=== PATIENT | male | born 1955 | race Caucasian/White ===

== ENCOUNTER → 2017-10-31 12:18 | Outpatient (CLI) | payer OTHER, SELFPAY ==
--- NOTE | 2017-10-31 12:20 | DI.RAD.S_ITS ---
PROCEDURE: XR HIP W PEL IF DONE LT 2V INDICATIONS: hip pain TECHNIQUE: 2 views of the hip were acquired. COMPARISON: None. FINDINGS: Bones: No fractures or dislocations. No suspicious bony lesions. The visualized pelvic ring appears intact. Bony ossicle adjacent to the superior acetabular rim. Soft tissues: No suspicious soft tissue calcifications or masses. IMPRESSION: Normal hip Dictated by: Rian Miles M.D. on 10/31/2017 at 12:37 Approved by: Rian Miles M.D. on 10/31/2017 at 12:38
== END ==
PROVIDERS: PCP Internal Medicine; Visit Provider Internal Medicine
DX: M25.552 Pain in left hip (principal)
CPT/HCPCS: 73502

== ENCOUNTER → 2018-04-13 13:30 | Outpatient (CLI) | payer OTHER, SELFPAY | PROVIDERS: PCP Internal Medicine; Visit Provider Physician Assistant | DX: J02.9 Acute pharyngitis, unspecified (principal) | CPT/HCPCS: 87070 ==

== ENCOUNTER → 2018-08-13 07:56 | Outpatient (CLI) | payer OTHER, SELFPAY ==
[2018-08-13 08:42] LABS: Add Manual Diff / Slide Review NO; Basophils Absolute Auto 100 /uL (0-100); Basophils Percent Auto 1.1 % (0-2); Eosinophils Absolute Auto 300 /uL (0-450); Eosinophils Percent Auto 3.8 % (2-4); Hematocrit 46.6 % (41-53); Hemoglobin 15.6 g/dL (13.5-17.5); Lymphocytes Absolute Auto 2000 /uL (1100-4500); Lymphocytes Percent Auto 25.1 % (25-40); Mean Corpuscular HGB Conc 33.6 % (30-36); Mean Corpuscular Hemoglobin 34.1 PG (26-34); Mean Corpuscular Volume 101.7 fL (80-100); Monocytes Absolute Auto 800 /uL (0-900); Monocytes Percent Auto 10.4 % (3-14); Neutrophils Absolute Auto 4600 /uL (1500-7000); Neutrophils Percent Auto 59.6 % (50-75); Platelet Count 241 X10^3/uL (150-400); Red Blood Cell Count 4.58 X10^6/uL (4.5-5.9); Red Cell Distribution Width 13.7 % (11.6-14.8); White Blood Cell Count 7.8 X10^3/uL (4.5-11.0)
[2018-08-13 09:03] LABS: Alanine Aminotransferase 69 IU/L (21-72); Albumin 4.3 g/dL (3.5-5.0); Albumin Globulin Ratio 1.7 (1.0-2.8); Alkaline Phosphatase 53 U/L (38-126); Aspartate Aminotransferase 61 IU/L (17-59); BUN Creatinine Ratio 25.7 (6-22); Blood Urea Nitrogen 18 mg/dL (9-20); Calcium 9.7 mg/dL (8.4-10.2); Carbon Dioxide 26 mmol/L (22-32); Chloride 101 mmol/L (98-107); Cholesterol 160 mg/dL (140-199); Estimated Glomerular Filt Rate > 60.0 mL/min (>60); Globulin 2.6 g/dL (1.7-4.1); Glucose 131 mg/dL (80-110); HDL Cholesterol 95 mg/dL (40-60); HEMOLYSIS < 15 (0-50); LDL Cholesterol Calculated 51 mg/dL (<100); Sodium 137 mmol/L (137-145); Total Protein 6.9 g/dL (6.3-8.2); Triglycerides 70 mg/dL (35-150)
== END ==
PROVIDERS: Visit Provider Internal Medicine
DX: I10 Essential (primary) hypertension (principal); E78.00 Pure hypercholesterolemia, unspecified; E11.9 Type 2 diabetes mellitus without complications; E66.9 Obesity, unspecified
CPT/HCPCS: 36415; 80053; 80061; 85025

== ENCOUNTER 2019-03-23 08:29 | Day surgery (SDC) | payer OTHER, SELFPAY ==
[2019-03-23] VITALS (8 sets, daily range): BP systolic 102–120; BP diastolic 56–78; PULSE 83–112; RESP 11–21; TEMP 35.9–36.4; O2SAT 91–96; BMI 30.7
--- NOTE | 2019-03-23 | PATH_ITS ---
[facility] Accession Number: [id number] . 01 Material submitted: . PART A: colon - 60 CM COLON POLYP PART B: rectum - RECTAL POLYP . 02 Diagnosis: A. Colon, 60 CM Polyp, Biopsy: Tubular adenoma. . B. Rectum, Polyp, Biopsy: Tubular adenoma. [facility] 03/24/2019 1447 Local . 02 Electronically signed: . Porsche Askew MD, Pathologist NPI- [id number] . 01 Gross description: . Part A: 60 CM COLON POLYP: Received in formalin are 4 fragment(s) of aldridge, soft tissue measuring 0.1 x 0.1 x 0.1 cm to 0.3 x 0.3 x 0.2 cm submitted entirely in 1 cassette(s) Part B: RECTAL POLYP: Received in formalin are multiple fragment(s) of aldridge, soft tissue measuring 0.1 x 0.1 x 0.1 cm to 0.2 x 0.2 x 0.2 cm submitted entirely in 1 cassette(s) /[facility] 03/23/2019 1916 Local . 02 Pathologist provided ICD-10: D12.6, D12.8 . 02 CPT . 838132, 360830 Performed at: 01 [facility] [address] [facility], [place], [place] [id number] MD Jose Angel Cooper MD Phone: [phone] Performed at: 02 [facility] [address] [place], [place] [id number] MD Porsche Askew MD Phone: [phone]
[2019-03-23] MEDS: SODIUM CHLORIDE 0.9% 1,000 ML 200 ML IV (08:52)
--- NOTE | 2019-03-23 09:38 | PM.HP.1 ---
History of Present Illness History of Present Illness Date Patient Seen: 03/23/19 Time Patient Seen: 09:38 Chief complaint: [id number] Narrative: Patient is a gentleman here for screening colonoscopy. His last exam was 11 years ago. No history of polyps and no family history of colon cancer. Patient History Medical History Abnormal LFTs (liver function tests) (Chronic 2013) Chicken pox (Resolved 1966) Colon polyps (Resolved) COPD (chronic obstructive pulmonary disease) (Chronic 2011) Diabetes mellitus (Chronic 2016) Hyperlipidemia (Chronic) Hypertension (Chronic) Psoriasis (Chronic 2009) Surgical History Anesthesia (Resolved) History of colonoscopy with polypectomy (Resolved 2010) Status post rotator cuff repair (Resolved) Status post rotator cuff repair (Resolved) Status post rotator cuff repair (Resolved 2007) Family & Social History Family History Father Kidney disease Type II diabetes mellitus Grandfather VT (myocardial infarction) Mother No problems noted. Grandfather VT (myocardial infarction) Family/Other Prostate cancer Other Family history of premature coronary artery disease Social History: household members spouse Tobacco & Substance use: Smoking Status Former smoker Meds Home Medications and Allergies Home Medications Medication Instructions Recorded Confirmed Type albuterol sulfate [Proventil HFA] 2 puff INH Q4HP PRN #17 gm 06/17/17 03/23/19 Rx simvastatin 20 mg tablet 20 mg PO HS #90 tab 12/31/17 03/23/19 Rx Disabled Parking #1 each 02/12/18 03/23/19 Rx Disabled [address]ing #1 each 02/12/18 03/23/19 Rx lisinopril 20 mg tablet 20 mg PO QDAY #90 tab 04/09/18 03/23/19 Rx fluticasone 500 mcg-salmeterol 50 See Rx Instructions INHALATION BID 06/05/18 03/23/19 Rx mcg/dose blistr powdr for #1 inhalation inhalation ipratropium 20 mcg-albuterol 100 1 puff INHALATION QID #4 inh 09/14/18 03/23/19 Rx mcg/actuation mist for inhalation Allergies Allergy/AdvReac Type Severity Reaction Status Date / Time No Known Drug Allergies Allergy Unknown Verified 03/23/19 08:54 [NO KNOWN DRUG ALLERGIES] Review of Systems Review of Systems ROS Unobtainable: All systems reviewed & are unremarkable except as noted in HPI and below Cardiovascular Comments: Hypertension controlled with medication. 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 It is markedly reduce his lung capacity. Exam Vital Signs (past 8 hours): - 03/23/19 09:04 Temperature 97.1 F L Pulse Rate 112 H Respiratory Rate 20 Blood Pressure 103/66 Pulse Oximetry 96 Oxygen Delivery Method Room Air Narrative Exam Narrative: Pleasant cooperative patient no apparent distress. Lungs are clear to auscultation. No rales or rhonchi. Heart regular rate and rhythm no murmur gallop. Abdomen is soft nontender, protuberant, without mass. No obvious hernias. Patient is alert and oriented x3. Assessment & Plan Assessment & Plan narrative: The patient for a screening colonoscopy. I have discussed the procedure with them. Risks of bleeding, perforation which would necessitate major operation, failure to find remove all lesions, the potential tattoo were all discussed. All questions were answered. They wished to proceed.
[2019-03-23] MEDS: MIDAZOLAM 5 MG/5 ML VIAL IV (09:49)
[2019-03-23] MEDS: fentaNYL 250 MCG/5 ML INJ IV (09:50)
--- NOTE | 2019-03-23 09:56 | PM.PREOP ---
Pre-operative Note Interval Note History & Physical reviewed/Exam performed by Physician: Yes Changes to H&P: No ASA Class (for procedural sedation): II
[2019-03-23] MEDS: ONDANSETRON 4 MG/2 ML INJ IV ×2 (10:02→10:21)
[2019-03-23] MEDS: SCOPOLAMINE 1 PATCH TOP (10:04)
--- NOTE | 2019-03-23 10:33 | PM.OP.ENDO ---
Operative Date/Time/Diagnoses Date of procedure: 03/23/19 Time of procedure: 10:33 Pre-op diagnosis: Screening exam. Last exam 11 years ago. Post-op diagnosis: same (Patient had 2 small polyps in sigmoid diverticulosis) Procedure & Clinicians Study performed: Colonoscopy with cold biopsy Same procedure as scheduled: Yes Indications: Screening Surgeon: Duane Dodson Procedure Notes SCOAP/Timeout: Performed Procedure in detail: The patient was placed in left lateral decubitus position underwent IV sedation directed by the surgeon consisting of fentanyl and Versed. Digital exam was remarkable for an enlarged firm prostate. The scope was inserted advanced through the rectum into the sigmoid descending transverse and ascending colon. Patient was noted to have sigmoid diverticulosis. His cecum was identified by the ileocecal valve and the appendiceal opening. The scope was gradually brought out. Two small polyps were identified. One was at 60 cm from the anal verge in 1 was in the rectum. Both were biopsied with cold biopsy forceps and appeared to be completely removed. The scope was retroflexed in the rectum. The appearance was normal. The scope was removed and the patient tolerated the procedure well. Scope withdrawal time: 10 minutes(13 and half total) Sedation minutes: 35 Findings: diverticulosis and polyp Specimen(s): other (Polyps) Complications: none Post-procedure Recommendations: Colonscopy in 5 years Follow up: as needed Disposition: PACU
--- NOTE | 2019-03-23 10:54 | SUR.PHASEI ---
had a brief episode of nausea, HOB elevated, - no emesis. Nausea now resolved, patient desired to try ice chips: given and encouraged to go slowly. States that he is feeling better.
--- NOTE | 2019-03-23 11:41 | SUR.PHASEII ---
Pt ready to go, left in stable condition.
== END 2019-03-23 11:41 | disposition home or self-care (01) ==
PROVIDERS: PCP Internal Medicine; Visit Provider Specialist
PROC: 0DJD8ZZ Inspection of Lower Intestinal Tract, Via Natural or Artificial Opening Endoscopic (ICD-10-PCS; CPT 45378; principal; 2019-03-23 09:45)
DX: Z12.11 Encounter for screening for malignant neoplasm of colon (principal); J44.9 Chronic obstructive pulmonary disease, unspecified; E11.9 Type 2 diabetes mellitus without complications; E78.5 Hyperlipidemia, unspecified; I10 Essential (primary) hypertension; K57.30 Diverticulosis of large intestine without perforation or abscess without bleeding; D12.8 Benign neoplasm of rectum; D12.6 Benign neoplasm of colon, unspecified
CPT/HCPCS: 45380; 99152; 99153; J2250; J2405; J3010

== ENCOUNTER → 2020-02-02 16:45 | Outpatient (CLI) | payer OTHER, SELFPAY ==
[2020-02-02 16:54] LABS: Bacteria Urine None Seen
[2020-02-02 17:43] LABS: Appearance Urine UA CLEAR; Bilirubin Urine UA NEGATIVE (NEGATIVE); Color Urine UA YELLOW; Glucose Urine UA NEGATIVE (Negative); Ketones Urine UA 1+ (NEGATIVE); Leukocyte Esterase Urine UA NEGATIVE (NEGATIVE); Nitrite Urine UA NEGATIVE (Negative); Occult Blood Urine UA NEGATIVE (Negative); Protein Urine UA TRACE (Negative); Urobilinogen Urine UA 0.2 E.U./dL (0.2)
[2020-02-02 17:55] LABS: Add Manual Diff / Slide Review NO; Basophils Absolute Auto 100 /uL (0-100); Eosinophils Absolute Auto 100 /uL (0-450); Eosinophils Percent Auto 0.4 % (2-4); Hematocrit 46.9 % (41-53); Hemoglobin 15.5 g/dL (13.5-17.5); Lymphocytes Absolute Auto 1600 /uL (1100-4500); Mean Corpuscular HGB Conc 33.1 % (30-36); Mean Corpuscular Hemoglobin 33.8 PG (26-34); Mean Corpuscular Volume 102.1 fL (80-100); Monocytes Absolute Auto 1000 /uL (0-900); Monocytes Percent Auto 8.7 % (3-14); Neutrophils Absolute Auto 8800 /uL (1500-7000); Neutrophils Percent Auto 75.9 % (50-75); Platelet Count 249 X10^3/uL (150-400); Red Blood Cell Count 4.59 X10^6/uL (4.5-5.9); Red Cell Distribution Width 13.9 % (11.6-14.8); White Blood Cell Count 11.6 X10^3/uL (4.5-11.0)
[2020-02-02 18:05] LABS: Culture Indicated Urine Cult Not Indicated; Mucus Urine 1+ (Negative); RBC Urine 1-5/HPF (0-5/HPF); Squamous Epithelial Cell Urine 0-1 /HPF (0-5/HPF); WBC Urine 0-1/HPF (0-5/HPF)
[2020-02-02 18:23] LABS: Alanine Aminotransferase 35 IU/L (<50); Albumin 4.6 g/dL (3.5-5.0); Albumin Globulin Ratio 1.5 (1.0-2.8); Alkaline Phosphatase 84 U/L (38-126); Aspartate Aminotransferase 82 IU/L (17-59); BUN Creatinine Ratio 20.8 (6-22); Bilirubin Total 1.2 mg/dL (0.2-1.3); Blood Urea Nitrogen 11 mg/dL (9-20); Calcium 9.7 mg/dL (8.4-10.2); Carbon Dioxide 29 mmol/L (22-32); Chloride 98 mmol/L (98-107); Estimated Glomerular Filt Rate > 60.0 mL/min (>60); Globulin 3.1 g/dL (1.7-4.1); Glucose 131 mg/dL (80-110); HEMOLYSIS < 15 (0-50); Potassium 4.6 mmol/L (3.4-5.1); Sodium 137 mmol/L (137-145); Total Protein 7.7 g/dL (6.3-8.2)
[2020-02-04 16:21] LABS: TSH w/ Reflex to FT4 2.52 uIU/mL (0.47-4.68)
== END ==
PROVIDERS: Internal Medicine; PCP Internal Medicine; Referring Provider Internal Medicine; Visit Provider Internal Medicine
DX: E11.9 Type 2 diabetes mellitus without complications (principal); I10 Essential (primary) hypertension; R53.1 Weakness
CPT/HCPCS: 36415; 80053; 81001; 84443; 85025

== ENCOUNTER → 2020-06-27 10:34 | Outpatient (CLI) | payer MEDICARE, SELFPAY ==
[2020-06-27] MEDS: COVID-19 VACC #1, MRNA(MOD) 100 MCG/0.5 ML VIAL IM (10:41)
== END ==
PROVIDERS: PCP Internal Medicine; Visit Provider Internal Medicine
DX: Z23 Encounter for immunization (principal)
CPT/HCPCS: 0011A; 91301

== ENCOUNTER → 2020-07-26 10:12 | Outpatient (CLI) | payer MEDICARE, SELFPAY ==
[2020-07-26] MEDS: COVID-19 VACC #2, MRNA(MOD) 100 MCG/0.5 ML VIAL IM (10:22)
== END ==
PROVIDERS: PCP Internal Medicine; Visit Provider Internal Medicine
DX: Z23 Encounter for immunization (principal)
CPT/HCPCS: 0012A; 91301

== ENCOUNTER → 2021-05-03 13:58 | Outpatient (CLI) | payer OTHER, SELFPAY ==
--- NOTE | 2021-05-03 | DI.CT.S_ITS ---
PROCEDURE: CT ANGIO CHEST PE PROTOCOL INDICATIONS: Shortness of breath TECHNIQUE: After the administration of intravenous contrast, 2 mm thick sections acquired from the pulmonary apices to the posterior costophrenic angles. 3-dimensional maximum intensity projection (MIP) coronal and sagittal reformats were then acquired through the thorax. For radiation dose reduction, the following was used: automated exposure control, adjustment of mA and/or kV according to patient size. COMPARISON: None. FINDINGS: Image quality: Excellent. Pulmonary arteries: Pulmonary arteries are normal in size, and demonstrate no intraluminal filling defects to suggest central pulmonary embolism. Lungs and pleura: Mild biapical predominant emphysema. 4 mm nodule within the right upper lobe anteriorly. Spiculated nodule within the left upper lobe laterally measuring 13 mm diameter. No evidence of pneumonia or edema. Scarring within the right upper and middle lobes anteriorly. No pleural effusions or pneumothorax. Central and peripheral airways are patent. There is narrowing of the transverse diameter of the intrathoracic trachea. Mediastinum: Heart size is normal, without pericardial effusion. There is mild calcification of the coronary vasculature. No mediastinal or hilar adenopathy. Thoracic aorta is normal in caliber and enhancement. Esophagus is normal in caliber, without hiatal hernia. Bones and chest wall: No suspicious bony lesions. Ribs and thoracic spine appear intact throughout. Thyroid gland is within normal limits. No axillary or supraclavicular adenopathy. Abdomen: Visualized portions of the upper abdomen demonstrate diffusely decreased density. IMPRESSION: 1. No pulmonary embolus. 2. Coronary artery disease. 3. Bilateral upper lobe nodules. Follow-up is recommended as below. 4. Coronary artery disease. Fleischner Society criteria for SOLID lung nodule followup. Nodule size (mm)Low-risk patientHigh-risk patient<6 (single or multiple)No routine followup.Optional CT at 12 months. 6-8 (single or multiple)CT at 6-12 months, then optional CT at 18-24 mo.CT at 6-12 months, then CT at 18-24 months. >8 (single)CT, PET-CT, or biopsy at 3 months. Same as for low-risk pts. >8 (multiple)CT at 3-6 months, then optional CT at 18-24 mo.CT at 3-6 months, then CT at 18-24 months. Recommendations do not apply to lung cancer screening, patients with immunosuppression, or patients with known primary cancer. Dictated by: Irene Land M.D. on 05/03/2021 at 14:46 Approved by: Irene Land M.D. on 05/03/2021 at 14:50
== END ==
PROVIDERS: PCP Internal Medicine; Referring Provider Internal Medicine; Visit Provider Internal Medicine
DX: R06.02 Shortness of breath (principal); I25.10 Atherosclerotic heart disease of native coronary artery without angina pectoris; R91.8 Other nonspecific abnormal finding of lung field
CPT/HCPCS: 71275; Q9967

== ENCOUNTER 2023-03-04 21:58 | Emergency (ER) | payer OTHER, SELFPAY ==
--- NOTE | 2023-03-04 21:57 | ED.GENADULT ---
HPI - General Adult General Chief complaint: Altered Mental Status Time Seen by Provider: 03/04/23 21:58 History of Present Illness HPI narrative: 67-year-old gentleman with a history of hypertension, hyperlipidemia and asthma was out this evening with friends and went [place] the casino had ?1 or 2 drinks?. He was walking back out to his car and found that his legs simply did not want to hold him up. He was holding onto the front of his truck and got down onto his knees. This was not an actual fall he did not hit his head. When medics arrived for further evaluation they found that he was too unsteady to stand up. He does smell of alcohol, appears to be acutely intoxicated, he is moving all extremities reports no recent fevers, cough, chills has no other localizing neurologic findings Related Data Previous Rx's Medication Instructions Recorded albuterol sulfate 90 mcg/actuation 2 puff INH Q4HP PRN ##17 06/17/17 aerosol inhaler (Proventil HFA) simvastatin 20 mg tablet 20 mg PO HS #90 tabs 12/31/17 [address]ing #1 ea 02/12/18 [address] #1 ea 02/12/18 lisinopril 20 mg tablet 20 mg PO QDAY #90 tabs 04/09/18 fluticasone 500 mcg-salmeterol 50 See Rx Instructions inhalation BID 06/05/18 mcg/dose blistr powdr for #1 inh inhalation (Advair Diskus) ipratropium 20 mcg-albuterol 100 1 puff inhalation QID #4 09/14/18 mcg/actuation mist for inhalation inhalations (Combivent Respimat) Allergies Allergy/AdvReac Type Severity Reaction Status Date / Time No Known Drug Allergies Allergy Unknown Verified 03/23/19 08:54 [NO KNOWN DRUG ALLERGIES] Review of Systems Review of Systems Narrative: Pertinent positive and negative findings as per HPI Patient History Medical History (Updated 03/04/23 @ 23:18 by Dayanna Hidalgo MD) Abnormal LFTs (liver function tests) (2013) Diabetes mellitus (2016) Colon polyps Hyperlipidemia Hypertension Chicken pox (1966) Psoriasis (2009) COPD (chronic obstructive pulmonary disease) (2011) Surgical History History of colonoscopy with polypectomy (2010) Anesthesia Status post rotator cuff repair (2007) Status post rotator cuff repair Status post rotator cuff repair Family History Father Kidney disease Type II diabetes mellitus Grandfather ID (myocardial infarction) Mother No problems noted. Grandfather ID (myocardial infarction) Family/Other Prostate cancer Other Family history of premature coronary artery disease Social History household members: spouse Smoking Status: Former smoker Exam Initial Vital Signs Initial Vital Signs: Vital Signs Pulse Rate 120 H 03/04/23 22:02 Pulse Oximetry 93 03/04/23 22:02 General: Appears intoxicated with alcohol but in no acute distress. Able to participate with history. Well-nourished well-developed HEENT: Moist mucous membranes, normal sclera with reactive pupils, Respiratory: Lungs are clear to auscultation, no wheezing no rales no rhonchi. Full and symmetrical air movement Cardiac: Tachycardic but otherwise Regular rate and rhythm no murmurs no bruits Abdomen: Soft, obese, nontender, good bowel tones, no flank pain Skin: Warm and dry, no rashes Neurologic: Unsteady gait, slightly slurred speech, NIH score is 0 Extremities: No trauma, well perfused Psych: Cooperative, surprised with the idea that he might be intoxicated Course Orders Ordered: ED Orders 03/04/23 22:19 Complete Blood Count AUTO DIFF Stat Comprehensive Metabolic Panel Stat Ethanol (ETOH) Stat Discontinued Medications Sodium Chloride (Normal Saline 0.9%) 1,000 mls @ 1,000 mls/hr IV BOLUS ONE Stop: 03/04/23 23:33 Last Admin: 03/04/23 22:53 Dose: 1,000 mls/hr Documented By: DRAKE Thiamine HCl 100 mg/ Sodium (Chloride) 101 mls @ 404 mls/hr IV NOW ONE Stop: 03/04/23 22:35 Last Admin: 03/04/23 22:52 Dose: 404 mls/hr Documented By: DRAKE Vital Signs Vital signs: Vital Signs - 8 hr 03/04/23 22:02 03/04/23 22:03 03/04/23 22:30 Temperature 97.3 F L Pulse Rate 120 H 116 H Respiratory Rate 20 Blood Pressure 134/90 140/76 Pulse Oximetry 93 93 Oxygen Delivery Method Room Air 03/04/23 22:30 03/04/23 23:00 03/04/23 23:00 Temperature Pulse Rate 115 H 119 H Respiratory Rate Blood Pressure 125/65 Pulse Oximetry 91 89 L Oxygen Delivery Method Medical Decision Making Lab Data 03/04/23 22:19 03/04/23 22:19 Labs: Lab Results 03/04/23 Range/Units 22:19 WBC 12.5 H (4.5-11.0) X10^3/uL RBC 4.10 L (4.5-5.9) X10^6/uL Hgb 14.9 (13.5-17.5) g/dL Hct 44.3 (41-53) % MCV 107.9 H (80-100) fL MCH 36.3 H (26-34) PG MCHC 33.6 (30-36) % RDW 15.0 H (11.6-14.8) % Plt Count 164 (150-400) X10^3/uL Neut % (Auto) 44.6 L (50-75) % Lymph % (Auto) 40.7 H (25-40) % [place] % (Auto) 11.6 (3-14) % Eos % (Auto) 1.9 L (2-4) % Baso % (Auto) 1.2 (0-2) % Neut # (Auto) 5600 (4805-8557) /uL Lymph # (Auto) 5100 H (0411-8707) /uL [place] # (Auto) 1400 H (0-900) /uL Eos # (Auto) 200 (0-450) /uL Baso # (Auto) 200 H (0-100) /uL Sodium 141 (137-145) mmol/L Potassium 4.1 (3.4-5.1) mmol/L Chloride 105 (98-107) mmol/L Carbon Dioxide 17 L (22-32) mmol/L BUN 13 (9-20) mg/dL Creatinine 0.62 L (0.66-1.25) mg/dL Estimated GFR > 60 (>60) mL/min BUN/Creatinine Ratio 21.0 (6-22) Glucose 130 H (80-110) mg/dL Calcium 9.1 (8.4-10.2) mg/dL Total Bilirubin 1.2 (0.2-1.3) mg/dL AST 152 H (17-59) IU/L ALT 46 (<50) IU/L Alkaline Phosphatase 90 (38-126) U/L Total Protein 8.6 H (6.3-8.2) g/dL Albumin 4.7 (3.5-5.0) g/dL Globulin 3.9 (1.7-4.1) g/dL Albumin/Globulin Ratio 1.2 (1.0-2.8) Ethyl Alcohol 382 H ( - 10) mg/dL [facility] Narrative Medical decision making narrative: CC: Unable to walk Complicating co-morbidities: Hypertension, hyperlipidemia, COPD Data collected from: patient, medics, girlfriend Differential considered: Acute alcohol intoxication, stroke Exam documented above, pertinent findings include: On initial presentation he appears to be acutely intoxicated and otherwise unharmed. He is moving all extremities but reportedly had difficulty standing independently Lab Test results independently reviewed as above. Pertinent findings: Alcohol level of 382 CBC shows slight leukocytosis at 12.5 without left shift. Red cell size is macrocytic with an MCV at 107.9 but no evidence of anemia. Chemistries are reassuring, his AST is chronically elevated slightly more so tonight but remainder of liver studies are unremarkable Treatments: L of saline and IV thiamine Re-evaluations: Findings are reviewed with patient and his significant other. He generally seems absolutely surprised that his alcohol level is high as it is. I suspect that he probably does not drink which explains the acute intoxication tonight. Discussion: 67-year-old gentleman drinking this evening walked out to his truck and slid down onto his knees and was then able to get back up. Medics brought him to the emergency department when his gait was significantly unsteady and he did not seem able to support himself walking. He seems acutely intoxicated with alcohol with no other obvious abnormalities appreciated. Labs are reassuring. He is given a L of fluid as well as thiamine. His significant other, who has not been drinking today, is available to take him home when he is physically able to walk out the door. At this time there is no evidence of altered at explanation for his symptoms such as sepsis, stroke or acute coronary syndrome. Discharge Plan Departure Patient Disposition: Home Clinical Impression: Acute alcoholic intoxication Qualifiers: Complication of substance-induced condition: uncomplicated Qualified Code(s): F10.920 - Alcohol use, unspecified with intoxication, uncomplicated Instructions: DI for Alcohol Use Disorder Activity Restrictions/Additional Instructions: Thank you for coming in tonight I believe the weakness that you are experiencing is due to your blood alcohol level of 382. To put this in perspective, 80 is considered the upper level of legal to still drive. I did not find any evidence of infection, significant electrolyte abnormalities, kidney dysfunction or stroke. I would recommend that you consider avoiding alcohol in the future. If you find that you are getting worse or develop any new symptoms, please feel free to return to the emergency department for further evaluation. Prescriptions: No Action albuterol sulfate [Proventil HFA] 90 MCG/PUFF HFA aerosol inhaler 2 puff INH Q4HP PRNQty: 17 11RF simvastatin 20 mg tablet 20 mg PO HS Qty: 90 1RF (DME) Disabled Parking Qty: 1 0RF Rx Instructions: As directed (DME) Disabled Parking Qty: 1 0RF Rx Instructions: As directed lisinopril 20 mg tablet 20 mg PO QDAY Qty: 90 1RF Advair Diskus 500-50 mcg/dose blister with device See Rx Instructions Inhalation BID Qty: 1 3RF Dose Instruction: 1PUFF Inhalation BID; Rx Instructions: 1PUFF Inhalation BID; Combivent Respimat 20-100 mcg/actuation mist 1 puff INHALATION QID Qty: 4 0RF Rx Instructions: Inhale 1 puff by mouth four times daily. Needs to establish with new PCP before more refills. 01/19/18 Referrals: José Yang MD [Primary Care Provider] - Stand Alone Forms: Patient Portal/API
[2023-03-04 22:02] VITALS: PULSE 120; O2SAT 93
[2023-03-04 22:03] VITALS: BP 134/90; PULSE 116; RESP 20; TEMP 36.3; O2SAT 93; BMI 29.2
--- NOTE | 2023-03-04 22:13 | PC.NURSE ---
pt was found kneeling by truck, pt does not remember kneeling on the ground, pt oriented to time, place and person but not to situation. pt states he only had one drink tonight, moves all extremities well, no speech slurring
[2023-03-04 22:26] LABS: Add Manual Diff / Slide Review NO; Basophils Absolute Auto 200 /uL (0-100); Basophils Percent Auto 1.2 % (0-2); Eosinophils Absolute Auto 200 /uL (0-450); Eosinophils Percent Auto 1.9 % (2-4); Hematocrit 44.3 % (41-53); Hemoglobin 14.9 g/dL (13.5-17.5); Lymphocytes Absolute Auto 5100 /uL (1100-4500); Lymphocytes Percent Auto 40.7 % (25-40); Mean Corpuscular HGB Conc 33.6 % (30-36); Mean Corpuscular Hemoglobin 36.3 PG (26-34); Mean Corpuscular Volume 107.9 fL (80-100); Monocytes Absolute Auto 1400 /uL (0-900); Monocytes Percent Auto 11.6 % (3-14); Neutrophils Absolute Auto 5600 /uL (1500-7000); Neutrophils Percent Auto 44.6 % (50-75); Platelet Count 164 X10^3/uL (150-400); White Blood Cell Count 12.5 X10^3/uL (4.5-11.0)
[2023-03-04 22:30] VITALS: BP 140/76; PULSE 115; O2SAT 91
[2023-03-04 22:32] LABS: Alanine Aminotransferase 46 IU/L (<50); Albumin 4.7 g/dL (3.5-5.0); Albumin Globulin Ratio 1.2 (1.0-2.8); Alkaline Phosphatase 90 U/L (38-126); Aspartate Aminotransferase 152 IU/L (17-59); Bilirubin Total 1.2 mg/dL (0.2-1.3); Blood Urea Nitrogen 13 mg/dL (9-20); Calcium 9.1 mg/dL (8.4-10.2); Carbon Dioxide 17 mmol/L (22-32); Chloride 105 mmol/L (98-107); Estimated Glomerular Filt Rate > 60 mL/min (>60); Globulin 3.9 g/dL (1.7-4.1); Glucose 130 mg/dL (80-110); Potassium 4.1 mmol/L (3.4-5.1); Sodium 141 mmol/L (137-145); Total Protein 8.6 g/dL (6.3-8.2)
[2023-03-04 22:40] LABS: Ethanol (ETOH) 382 mg/dL; HEMOLYSIS 33 (0-50)
[2023-03-04] MEDS: THIAMINE 100 MG in SODIUM CHLORIDE 0.9% 100 ML 404 MG IV (22:52)
[2023-03-04] MEDS: SODIUM CHLORIDE 0.9% 1,000 ML 1000 ML IV (22:53)
[2023-03-04 23:00] VITALS: BP 125/65; PULSE 119; O2SAT 89
[2023-03-04 23:30] VITALS: BP 127/85; PULSE 119; O2SAT 91
== END 2023-03-04 23:50 | disposition home or self-care (01) ==
PROVIDERS: Emergency Provider Emergency Medicine; PCP Internal Medicine
DX: F10.920 Alcohol use, unspecified with intoxication, uncomplicated (principal); Y90.8 Blood alcohol level of 240 mg/100 ml or more
CPT/HCPCS: 36415; 80053; 80320; 85025; 96365; 99283; 99284